=== PATIENT | male | born 1980 | race Caucasian/White ===

== ENCOUNTER 2017-06-21 18:45 | Emergency (ER) | payer OTHER ==
[~2017-06-21] VITALS: Ht 218.4 cm; Wt 108.9 kg
[2017-06-21 18:45] VITALS: BP 133/82
--- NOTE | 2017-06-21 19:07 | NUR ---
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 NO SOB. VSS
[2017-06-21] MEDS ORDERED: predniSONE 20 MG TABLET ONE (19:26)
[2017-06-21] MEDS ORDERED: predniSONE 20 MG TABLET PO ONE ×2 (19:30)
== END 2017-06-21 19:36 | disposition home or self-care (01) ==
LOC: ER 18:47
DX: R21 Rash and other nonspecific skin eruption (principal)
CPT/HCPCS: 99283; A4606; J7512; Z7610

== ENCOUNTER 2017-07-07 11:05 | Emergency (ER) | payer OTHER ==
[~2017-07-07] VITALS: Ht 213.4 cm; Wt 111.1 kg
[2017-07-07 11:25] VITALS: BP 102/59
--- NOTE | 2017-07-07 11:30 | NUR ---
Presents to ER c/o generalized body rash s/p taking keflex and hairdye. Also c/o rash on penis. Patient is a/ox 4. breathing even and unlabored. no sob. vitals stable. safety and comfort measures in place. awaiting md orders.
--- NOTE | 2017-07-07 12:10 | NUR ---
AT BEDSIDE FOR EVAL.
== END 2017-07-07 13:55 | disposition home or self-care (01) ==
LOC: ER 11:14
DX: L25.9 Unspecified contact dermatitis, unspecified cause (principal); F10.10 Alcohol abuse, uncomplicated
CPT/HCPCS: 99283; A4606; Z7610